=== PATIENT | male | born 1985 | race Caucasian/White ===

== ENCOUNTER 2021-02-22 15:21 | Outpatient (REF) | payer SELFPAY ==
[2021-02-23 12:04] LABS: COVID-19 RT-PCR UVMMC Result Negative (Negative)
== END 2021-02-22 15:22 | disposition home or self-care (01) ==
LOC: NCHCN 15:21
PROVIDERS: PCP Internal Medicine; Visit Provider Internal Medicine
DX: Z20.822 Contact with and (suspected) exposure to COVID-19 (principal)
CPT/HCPCS: U0003